=== PATIENT | female | born 1995 | race Caucasian/White ===

== ENCOUNTER 2017-07-04 23:02 | Emergency (ER) | payer OTHER, MEDICAID ==
[~2017-07-04] VITALS: Ht 162.6 cm; Wt 81.9 kg
[~2017-07-04 23:02] MED LIST: BUSPAR5 MG; XANAX 0.5MG0.5 MG PO
[2017-07-04 23:08] VITALS: BP 124/65; TEMP 97.7
[2017-07-04] MEDS ORDERED: ZOLOFT 100MG100 MG PO (23:13)
[2017-07-04] MEDS ORDERED: PROAIR RES117 MCG/Ac IH (23:13)
[2017-07-05 01:12] VITALS: PULSE 80
[2017-07-05] MEDS ORDERED: ATARAX 25MG25 MG/TAB PO (20:11)
[2017-07-05] MEDS ORDERED: PREDNISONE20 MG PO (20:11)
== END 2017-07-05 01:12 | disposition home or self-care (01) ==
LOC: COL.ER 23:02
DX: L50.9 Urticaria, unspecified (principal); Z88.8 Allergy status to other drugs, medicaments and biological substances; Z98.890 Other specified postprocedural states
CPT/HCPCS: J1200

== ENCOUNTER 2017-07-05 19:21 | Emergency (ER) | payer OTHER, MEDICAID ==
[~2017-07-05] VITALS: Ht 162.6 cm; Wt 81.8 kg
[~2017-07-05 19:21] MED LIST changes: +PROAIR RES117 MCG/Ac IH; +ZOLOFT 100MG100 MG PO
[2017-07-05 19:23] VITALS: BP 132/63; TEMP 97.8
[2017-07-05] MEDS ORDERED: PREDNISONE20 MG PO (20:11)
[2017-07-05] MEDS ORDERED: ATARAX 25MG25 MG/TAB PO (20:11)
[2017-07-05 20:20] VITALS: PULSE 82
== END 2017-07-05 20:22 | disposition home or self-care (01) ==
LOC: COL.ER 19:21
DX: L50.9 Urticaria, unspecified (principal)
CPT/HCPCS: J7512

== ENCOUNTER 2017-08-24 18:06 | Emergency (ER) | payer OTHER, MEDICAID ==
[~2017-08-24] VITALS: Ht 162.6 cm; Wt 85.0 kg
[~2017-08-24 18:06] MED LIST changes: +ATARAX 25MG25 MG/TAB PO; +PREDNISONE20 MG PO
[2017-08-24 18:33] LABS: BASO % 0.3 % (0.0-2.0); EOS # 0.1 (0.0-0.7); EOS % 0.6 % (0-4.0); GRAN # 7.8 (1.4-6.5); HEMATOCRIT 40.1 % (35.0-45.0); HEMOGLOBIN 13.2 g/dl (12.0-15.0); LYMPH # 3.4 (1.2-3.4); LYMPH % 28.1 % (20.0-51.0); MEAN CELL VOLUME 80 fl (80.0-95.0); MEAN CORPUSCULAR HEMOGLOBIN 26 pg (26.0-32.0); MEAN CORPUSCULAR HGB CONC 33 g/dl (33.0-37.0); MONO # 0.7 (0.1-0.6); MONO % 5.7 % (1.7-9.3); PLATELET COUNT 310 K/mm3 (130-400); RED BLOOD COUNT 5.01 M/mm3 (4.10-5.30); REDCELL DISTRIBUTION WIDTH-CV 14.1 % (11.5-14.5)
[2017-08-24] MEDS ORDERED: DEPO-PROVER150 MG/M1 IM (18:37)
[2017-08-24 18:49] LABS: ALANINE AMINOTRANSFERASE 32 U/L (9-52); ALBUMIN 4.8 gm/dL (3.5-5.0); ALKALINE PHOSPHATASE 68 U/L (50-136); ANION GAP 15 mmol/L (7-16); AST,SGOT 18 U/L (15-37); BILIRUBIN,TOTAL 0.2 mg/dL (0.0-1.0); BLOOD UREA NITROGEN 14 mg/dL (7-17); CALCIUM 9.9 mg/dL (8.4-10.2); CARBON DIOXIDE 25 mmol/L (22-30); CHLORIDE 102 mmol/L (98-107); GLUCOSE 110 mg/dL (74-106); SODIUM 142 mmol/L (137-145); TOTAL PROTEIN 8.7 gm/dL (6.4-8.2)
[2017-08-24 18:50] LABS: ACETAMINOPHEN < 10 ug/mL (10-30); ALCOHOL(ethanol),MEDICAL < 10 mg/dL; SALICYLATE < 1.0 mg/dL
[2017-08-24 18:56] VITALS: BP 142/74; TEMP 98.1
[2017-08-24 19:00] LABS: COLLECTION METHOD CLEAN CATCH
[2017-08-24 19:07] LABS: MUCOUS Present /lpf; PH 5 (5-8); SQUAMOUS EPITHELIAL 0-2 /hpf; URINE APPEARANCE Hazy; URINE BACTERIA Rare /hpf; URINE BILIRUBIN Negative (NEGATIVE); URINE BLOOD Negative (NEGATIVE); URINE COLOR Yellow; URINE GLUCOSE Negative (NEGATIVE); URINE KETONE Negative (NEGATIVE); URINE LEUKOCYTE ESTERASE 2+ (NEGATIVE); URINE NITRATE Negative (NEGATIVE); URINE PROTEIN(semi-quant) Negative (NEGATIVE); URINE RBC 0-2 /hpf; URINE UROBILINOGEN Negative (NEGATIVE)
[2017-08-24 19:18] LABS: TRICYCLIC ANTIDEPRESS URINE NEGATIVE
[2017-08-24 21:32] VITALS: PULSE 68
== END 2017-08-24 21:17 | disposition home or self-care (01) ==
LOC: COL.ER 18:06
PROVIDERS: Nurse Practitioner
DX: F32.9 Major depressive disorder, single episode, unspecified (principal); F41.9 Anxiety disorder, unspecified; F17.210 Nicotine dependence, cigarettes, uncomplicated; Z90.89 Acquired absence of other organs

== ENCOUNTER 2018-04-30 16:14 | Emergency (ER) | payer OTHER, MEDICAID ==
[~2018-04-30] VITALS: Ht 162.6 cm; Wt 90.9 kg
[~2018-04-30 16:14] MED LIST changes: +DEPO-PROVER150 MG/M1 IM
[2018-04-30 16:22] VITALS: BP 128/68; TEMP 98.2
[2018-04-30 17:27] VITALS: PULSE 70
== END 2018-04-30 17:28 | disposition other institution (70) ==
LOC: COL.ER 16:14
DX: S91.332A Puncture wound without foreign body, left foot, initial encounter (principal); W22.8XXA Striking against or struck by other objects, initial encounter; Y92.009 Unspecified place in unspecified non-institutional (private) residence as the place of occurrence of the external cause

== ENCOUNTER → 2021-04-09 | Outpatient (CLI) | payer BC, MEDICAID | LOC: COL.RAD 09:57 | DX: E01.0 Iodine-deficiency related diffuse (endemic) goiter (principal) ==

== ENCOUNTER 2021-06-01 14:29 | Emergency (ER) | payer BC, MEDICAID ==
[~2021-06-01] VITALS: Ht 162.6 cm; Wt 115.0 kg
[2021-06-01 15:17] VITALS: TEMP 98.4
[2021-06-01 16:12] VITALS: BP 123/67; PULSE 84
== END 2021-06-01 16:12 | disposition home or self-care (01) ==
LOC: COL.ER 14:29
DX: U07.1 COVID-19 (principal); F32.A Depression, unspecified; Z79.899 Other long term (current) drug therapy